=== PATIENT | female | born 1990 | race Asian ===

== ENCOUNTER 2017-09-25 16:58 | Emergency (ER) | payer SELFPAY ==
[~2017-09-25] VITALS: Ht 154.9 cm; Wt 53.5 kg
[2017-09-25 17:10] VITALS: Ht 154.9 cm; Wt 53.5 kg
[2017-09-25 19:42] VITALS: BP 108/78
== END 2017-09-25 19:42 | disposition home or self-care (01) ==
LOC: ED 16:58
DX: S00.83XA Contusion of other part of head, initial encounter (principal); W10.9XXA Fall (on) (from) unspecified stairs and steps, initial encounter; Y93.89 Activity, other specified; Y92.89 Other specified places as the place of occurrence of the external cause; Y99.8 Other external cause status
CPT/HCPCS: Q0162